=== PATIENT | female | born 1990 | race African-American/Black ===

== ENCOUNTER 2016-11-10 18:10 | Emergency (ER) | payer OTHER ==
[~2016-11-10] VITALS: Ht 160 cm; Wt 83.9 kg
[~2016-11-10 18:10] MED LIST: AMOXICILLIN 50500 MG PO; BACTRIM DS TAB1 EACH PO; DOXYCYCLINE 10100 MG PO; FLAGYL500 MG PO; HYDROXYZINE PAM25 M1 PO; LOESTRIN1 EAC1; MEDROL DOSPAK21 TAB PO; NOHOMEMEDICATIONS; NORCO 5-325 TA1 EACH PO; PYRIDIUM200 MG PO; ULTRAM 50MG TAB50 MG PO; XANAX 0.5 MG0.5 M1 PO
[2016-11-10 18:33] LABS: URINE BILIRUBIN NEGATIVE (Negative); URINE BLOOD NEGATIVE (Negative); URINE COLOR YELLOW; URINE GLUCOSE-RANDOM* NEGATIVE (Negative); URINE KETONES NEGATIVE (Negative); URINE NITRITE NEGATIVE (Negative); URINE PROTEIN (DIPSTICK) NEGATIVE (Negative); URINE SPECIFIC GRAVITY 1.015 (1.003-1.035); URINE UROBILINOGEN 0.2 E.U./dl (0.2-1.0)
[2016-11-10 18:43] LABS: BACTERIA 1-9 Few /HPF (None Seen); CASTS None Seen /LPF (None Seen); CRYSTALS None Seen /LPF (None Seen); SQUAMOUS 0-3 Few /LPF (0-3); URINE RBC None Seen /HPF (0-2); URINE WBC 6-15 Few /HPF (0-5)
[2016-11-10 19:00] LABS: ABSOLUTE NEUTROPHILS 7.4 thou/uL (1.4-8.2); BASOPHILS 0.3 % (0.0-2.0); EOSINOPHILS 1.3 % (0.0-3.0); HEMATOCRIT 36.7 % (37.0-47.0); HEMOGLOBIN 12.2 gm/dL (12.0-15.0); LYMPHOCYTES 26.2 % (24.0-44.0); MCH 26.3 pg (26.0-34.0); MCHC 33.2 g/dL (28.0-37.0); MCV 79.3 fL (80.0-100.0); MONOCYTES 5.2 % (1.0-8.0); PLATELET COUNT 307 thou/uL (150-400); RBC 4.62 mil/uL (4.20-5.00); WBC 11.9 thou/uL (4.0-11.0)
[2016-11-10 19:03] LABS: MANUAL DIFF NO
[2016-11-10 19:10] LABS: CALCIUM 9.2 mg/dL (8.5-10.1); CREATININE 0.6 mg/dL (0.6-1.0); POTASSIUM 4.4 mmol/L (3.5-5.1)
[2016-11-10 20:26] VITALS: BP 128/68
[2016-11-10] MEDS ORDERED: ONDANSETRON HCL4 M2 PO (20:31)
[2016-11-10] MEDS ORDERED: MACROBID 100 M100 M1 PO (20:33)
== END 2016-11-10 20:33 | disposition home or self-care (01) ==
LOC: ER 18:10
PROVIDERS: Nurse Practitioner
DX: O23.41 Unspecified infection of urinary tract in pregnancy, first trimester (principal); O21.9 Vomiting of pregnancy, unspecified; Z3A.08 8 weeks gestation of pregnancy